=== PATIENT | female | born 1945 | race Caucasian/White ===

== ENCOUNTER → 2016-07-25 | Outpatient (CLI) | payer OTHER, MEDICARE ==
--- NOTE | 2016-07-25 11:25 | CT ---
CT Scan of the Paranasal Sinuses Clinical History: 71-year-old female with suspected chronic sinusitis. ICD 10 Diagnostic Code: G32.9. Technique: A multidetector unenhanced helical CT scan was obtained from the level of the frontal sinu ses inferiorly through the maxillary alveolar ridge, with images reformatted at 2.00 mm increments an d reviewed in bone and soft tissue windows. Parasagittal and paracoronal reconstructed images are als o reviewed on the workstation. The DFOV is 17.2 cm. A dose reduction protocol was used. Comparison Study: CT scan of the facial bones, dated January 13, 2016. Findings: Since the previous study, there has been resolution of tiny air-fluid levels associated wit h the posterior portions of the maxillary sinuses. The maxillary, ethmoid, frontal, and sphenoid sinu ses are now patent. There is no mucosal thickening, polyp, retention cyst, or osseous erosion. There is mild rightward nasal septal deviation. The ostiomeatal complexes are patent, although mildly narro wed on the right side. There is a mild degree of nasal turbinate congestion with some dependent mucus in the inferior nasal cavities. The orbital rims are intact. The osseous calvarium is within normal limits. There is some mural atherosclerotic calcification of the cavernous carotid arteries. The temp oromandibular joints are anatomically aligned. The mastoids are patent. The visualized supra- and inf ratentorial structures are age-appropriate with a mild degree of cortical atrophy. Impression: There is no evidence of sinusitis.
== END ==
LOC: FIMAGING 09:18
PROVIDERS: ATTEND Internal Medicine Infectious Disease
DX: R09.81 Nasal congestion (principal); J34.2 Deviated nasal septum
CPT/HCPCS: 82784-90; 83516-90; 83520-90

== ENCOUNTER → 2016-11-28 | Outpatient (CLI) | payer OTHER, MEDICARE | LOC: FIMAGING 09:08 | DX: M43.12 Spondylolisthesis, cervical region (principal); M48.02 Spinal stenosis, cervical region; M50.31 Other cervical disc degeneration, high cervical region; M50.321 Other cervical disc degeneration at C4-C5 level; M50.322 Other cervical disc degeneration at C5-C6 level; M50.323 Other cervical disc degeneration at C6-C7 level; M50.33 Other cervical disc degeneration, cervicothoracic region; M51.34 Other intervertebral disc degeneration, thoracic region; M12.88 Other specific arthropathies, not elsewhere classified, other specified site; M99.71 Connective tissue and disc stenosis of intervertebral foramina of cervical region ==

== ENCOUNTER → 2017-01-27 | Outpatient (CLI) | payer OTHER, MEDICARE | DX: R13.13 Dysphagia, pharyngeal phase (principal); Z98.1 Arthrodesis status | CPT/HCPCS: 92611-GN ==

== ENCOUNTER 2017-06-22 11:58 | Emergency (ER) | payer OTHER, MEDICARE ==
[2017-06-22 12:07] VITALS: TEMP 98.1
--- NOTE | 2017-06-22 12:13 | EDPHY ---
HPI/HX/ROS/PE/MDM Narrative: CHIEF COMPLAINT: Headache HPI: This patient is a 72 year old female with history of hypertension who underwent c-spine surgery in November complaining of headache and recent blood pressure changes. 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 Her spine surgeon, Dr. Abelardo Palomo in [place], referred her to a local pain control clinic under the care of Dr. Etienne Mercedes at [facility]. Dr. Mercedes performed a lidocaine injection about 1.5 weeks ago. Following this, she has had horrible headaches and dizziness. At a follow up visit , four days ago, the patient was noted to be hypertensive at that visit at 172/110. She was referred to urgent care, but did not present at that time because she needed to go to the airport. She felt better Thursday and relaxed over the weekend. Today, she developed severe pounding head pain and her dizziness returned. She has pain behind her eyes and radiating up from neck. She states her blood pressure is normal today. She generally takes Carvedilol, Losartan, and Furosemide, and denies any recent changes or missed doses. She denies chest pain , shortness of breath, nausea, vomiting, or other associated symptoms. REVIEW OF SYSTEMS: Aside from elements discussed in the HPI, a comprehensive 10-point review of systems was reviewed and is negative. PMH: 1. Hypertension (Carvedilol, Losartan, Furosemide) 2. Asthma 3. Psoriasis 4. History of skin cancer 5. Cervical spine surgery 6. Cholecystectomy 7. Hernia repair SOCIAL HISTORY: Lives in [place]. Retired. PCP Dr. Son. PHYSICAL EXAM: General:Patient is alert, in no acute distress. ENT:Eyes are normal to inspection. ENT inspection normal. Neck: Diffuse tenderness. Normal inspection. Full range of motion. Respiratory:No respiratory distress. Breath sounds normal bilaterally. Cardiovascular: Regular rate and rhythm. Strong peripheral pulses. Normal cap refill. Abdomen:The abdomen is nontender to palpation. There are no peritoneal signs. There are normal bowel sounds. Back: Normal to inspection. No tenderness to palpation. Skin: Normal color. No rash. Warm and dry. Extremities: Normal appearance. Full range of motion. Neuro: Oriented x3. Normal motor function. Normal sensory function. No pronator drift. Normal [id number]. ED Course: This patient is a 72 y/o female s/p cervical spine surgery in November, six months ago, complaining of persistent head and neck pain. Exam reveals diffuse tenderness to the neck. She is neurologically intact. Plan for labs including CBC BMP, Troponin. Plan to administer 0.5mg IV Dilaudid for pain relief. Offered CT imaging for further evaluation as the patient states adamantly that she cannot have MRI due to hardware in her neck. She denies having CT imaging since onset of pain. Plan for CT head and CTA head and neck. 14:[address] Marley, radiologist. CT studies negative for acute processes. 14:30 Reassessed patient. Discussed imaging results. Plan to discharge home in good condition. She will follow up with her pain specialist and spine surgeon within 72 hours for further evaluation. She understands to follow up with her PCP as well regarding her blood pressure concerns. Return precautions discussed. She is comfortable with this plan. MDM: This patient presents with a combination of chronic severe neck and head pain, as well as recent elevated BP readings. She was apparently found to have an elevated BP at her pain management appointment last week, but this was also recorded when patient admits she was in severe pain, so it is unclear if this is significant. Her BP is mildly elevated here in the ED but certainly not dangerously so, and she is already on HTN meds. Workup in the ED negative for signs of end-organ damage. Given patient's complaint of head and neck pain associated with dizziness, CTA was performed as well to ensure no signs of vessel dissection or occlusion, and this is thankfull normal. Patient insists that she is not able to undergo an MRI because of neck hardware - I am not sure if this is actually true but patient refuses to consider MRI at this time. We will discharge patient with instructions to follow-up with PCP closely regarding her BP management. - Data Points Imaging Results: Imaging Impressions Head CTA 06/22/17 12:39 Impression: 1. Markedly limited due to metallic artifact from the anterior and posterior fusion hardware. 2. Mild atherosclerotic disease bilateral carotid bulbs without flow-limiting stenosis or occlusion. 3. No evidence of occlusion of the bilateral carotid or vertebral arteries. 4. No definite carotid or vertebral dissection, although markedly limited due to patient metallic artifact, especially for evaluation of bilateral vertebral arteries. Measurement of carotid stenosis is based on the residual internal carotid diameter with [place] Symptomatic Carotid Endarterectomy Trial (NASCET) based stenosis levels. CT Angiogram of the Brain Clinical Indications: Severe headache, dizziness, recent neck procedure. Technique: CT angiogram of the brain and neck was performed with the uneventful intravenous administration of 85 mL Isovue-370 contrast. Multiplanar reconstructions including 3D reconstructions performed and evaluated on [employer] workstation in order to better evaluate the [place] vessels. Images were manipulated by the radiologist at the computer workstation. Dose reduction techniques were utilized. Findings: Major vessels of the [place] are adequately displayed, demonstrating no evidence of aneurysm, vascular malformation, flow-limiting stenosis, or occlusion. Bilateral cavernous internal carotid arteries and vertebrobasilar system demonstrates no evidence of flow-limiting stenosis, aneurysm, occlusion, or dissection. Superior sagittal sinus, transverse sinuses , and major veins demonstrate no evidence of intraluminal thrombi. Mild cerebrovascular atherosclerotic calcifications bilateral cavernous internal carotid arteries. Impression: 1. Cerebrovascular atherosclerosis. 2. No evidence of complete occlusion of the [place] vessels or superior sagittal sinus. 3. No definite cerebral aneurysm. Findings and recommendations discussed with emergency department physician, Zia Braden MD at 1410 hours, June 22, 2017. Final report concurs with initial preliminary interpretation. Head CT 06/22/17 12:40 Impression: 1. Mild atrophy. 2. No acute hemorrhage, hydrocephalus, or mass effect. 3. Cerebrovascular atherosclerosis. 4. No definite acute infarct. 5. No sinusitis. Findings and recommendations discussed with emergency department physician, Zia Braden MD at 1409 hours, June 22, 2017. Final report concurs with initial preliminary interpretation. Neck CTA 06/22/17 12:40 Impression: 1. Markedly limited due to metallic artifact from the anterior and posterior fusion hardware. 2. Mild atherosclerotic disease bilateral carotid bulbs without flow-limiting stenosis or occlusion. 3. No evidence of occlusion of the bilateral carotid or vertebral arteries. 4. No definite carotid or vertebral dissection, although markedly limited due to patient metallic artifact, especially for evaluation of bilateral vertebral arteries. Measurement of carotid stenosis is based on the residual internal carotid diameter with [place] Symptomatic Carotid Endarterectomy Trial (NASCET) based stenosis levels. CT Angiogram of the Brain Clinical Indications: Severe headache, dizziness, recent neck procedure. Technique: CT angiogram of the brain and neck was performed with the uneventful intravenous administration of 85 mL Isovue-370 contrast. Multiplanar reconstructions including 3D reconstructions performed and evaluated on [employer] workstation in order to better evaluate the [place] vessels. Images were manipulated by the radiologist at the computer workstation. Dose reduction techniques were utilized. Findings: Major vessels of the [place] are adequately displayed, demonstrating no evidence of aneurysm, vascular malformation, flow-limiting stenosis, or occlusion. Bilateral cavernous internal carotid arteries and vertebrobasilar system demonstrates no evidence of flow-limiting stenosis, aneurysm, occlusion, or dissection. Superior sagittal sinus, transverse sinuses , and major veins demonstrate no evidence of intraluminal thrombi. Mild cerebrovascular atherosclerotic calcifications bilateral cavernous internal carotid arteries. Impression: 1. Cerebrovascular atherosclerosis. 2. No evidence of complete occlusion of the [place] vessels or superior sagittal sinus. 3. No definite cerebral aneurysm. Findings and recommendations discussed with emergency department physician, Zia Braden MD at 1410 hours, June 22, 2017. Final report concurs with initial preliminary interpretation. Imaging: Discussed imaging studies w/ endocrinology physician Radiologist Laboratory Results: Laboratory Results 06/22/17 12:50 06/22/17 12:50 06/22/17 06/22/17 06/22/17 12:56 12:50 12:50 WBC 7.71 10^3/uL 10^3/uL (3.80-9.50) RBC 4.29 10^6/uL 10^6/uL (4.18-5.33) Hgb 13.0 g/dL g/dL (12.6-16.3) POC Hgb 12.9 gm/dL gm/dL (12.6-16.3) Hct 38.9 % % (38.0-47.0) POC Hct 38 % % (38-47) MCV 90.7 fL fL (81.5-99.8) MCH 30.3 pg pg (27.9-34.1) MCHC 33.4 g/dL g/dL (32.4-36.7) RDW 12.2 % % (11.5-15.2) Plt Count 194 10^3/uL 10^3/uL (150-400) MPV 10.3 fL fL (8.7-11.7) Neut % (Auto) 76.0 % H % (39.3-74.2) Lymph % (Auto) 15.4 % % (15.0-45.0) Garrard % (Auto) 5.8 % % (4.5-13.0) Eos % (Auto) 2.2 % % (0.6-7.6) Baso % (Auto) 0.3 % % (0.3-1.7) Nucleat RBC Rel Count 0.0 % % (0.0-0.2) Absolute Neuts (auto) 5.86 10^3/uL 10^3/uL (1.70-6.50) Absolute Lymphs (auto) 1.19 10^3/uL 10^3/uL (1.00-3.00) Absolute Monos (auto) 0.45 10^3/uL 10^3/uL (0.30-0.80) Absolute Eos (auto) 0.17 10^3/uL 10^3/uL (0.03-0.40) Absolute Basos (auto) 0.02 10^3/uL 10^3/uL (0.02-0.10) Absolute Nucleated RBC 0.00 10^3/uL 10^3/uL (0-0.01) Immature Gran % 0.3 % % (0.0-1.1) Immature Gran # 0.02 10^3/uL 10^3/uL (0.00-0.10) POC Sodium 140 mEq/L mEq/L (134-144) Sodium 142 mEq/L mEq/L (134-144) POC Potassium 3.9 mEq/L mEq/L (3.3-5.0) Potassium 4.2 mEq/L mEq/L (3.5-5.2) POC Chloride 103 mEq/L mEq/L (97-110) Chloride 103 mEq/L mEq/L (97-110) Carbon Dioxide 24 mEq/l mEq/l (22-31) Anion Gap 15 mEq/L mEq/L (8-16) POC BUN 33 mg/dL H mg/dL (7-23) BUN 33 mg/dL H mg/dL (7-23) Creatinine 1.2 mg/dL H mg/dL (0.6-1.0) POC Creatinine 1.3 mg/dL H mg/dL (0.6-1.0) Estimated GFR 44 Glucose 108 mg/dL H mg/dL (70-100) POC Glucose 114 mg/dL H mg/dL (70-100) Calcium 10.1 mg/dL mg/dL (8.5-10.4) Troponin I < 0.012 ng/mL ng/mL (0.000-0.034) Medications Given: Hydromorphone HCl (Dilaudid) 0.5 mg IVP Q2HRS PRN PRN Reason: Pain, Severe Unable to Take PO Last Admin: 06/22/17 12:53 Dose: 0.5 mg Point of Care Test Results: 06/22/17 12:56 POC Sodium 140 POC Potassium 3.9 POC Chloride 103 POC BUN 33 H POC Creatinine 1.3 H POC Glucose 114 H General Time Seen by Provider: 06/22/17 12:10 Initial Vital Signs: Initial Vital Signs Temperature (C) 36.7 C 06/22/17 12:03 Heart Rate 68 06/22/17 12:03 Respiratory Rate 17 06/22/17 12:03 Blood Pressure 126/81 H 06/22/17 12:03 O2 Sat (%) 96 06/22/17 12:03 O2 Delivery Mode Room Air O2 (L/minute) 2 Allergies/Adverse Reactions: Sulfa (Sulfonamide Antibiotics) Allergy (Severe, Verified 06/22/17 12:00) Anaphylaxis Home Medications: Medication Instructions Recorded Aspirin 81mg (OTC) 04/04/15 Carvedilol 04/04/15 Furosemide 04/04/15 Losartan Potassium 04/04/15 Metformin HCl 04/04/15 Etanercept [Enbrel] 01/14/16 Oxycodone HCl 06/22/17 Sertraline HCl 06/22/17 Departure - Departure Disposition: Home, Routine, Self-Care Clinical Impression: Neck pain, Headache Condition: Good Instructions: Acute Headache (ED), Neck Pain (ED) Additional Instructions: Follow-up with your PCP within one week for blood pressure management. Follow- up with your spine and pain specialists regarding your neck pain and headache within 72 hours. Return to the ED for fever, severe pain, numbness, weakness or other concerns. Referrals: Gillian Son MD [Primary Care Provider] - As per Instructions Report Scribed for: Zia Braden Report Scribed by: Radha Aguirre Date of Report: 06/22/17 Time of Report: 14:30 Physician Review and Approval Statement: Portions of this note were transcribed by an ED scribe. I personally performed the history, physical exam, and medical decision making; and confirm the accuracy of the information in the transcribed note.
[2017-06-22] MEDS ORDERED: HYDROmorphONE/DILAUDID 1 MG/ML INJ IVP PRN (12:39)
[2017-06-22 13:07] LABS: PLATELET COUNT 194 10^3/uL (150-400)
[2017-06-22] MEDS ORDERED: IOPAMIDOL (ISOVUE 370) 100 ML BTL IV ONE (13:15)
[2017-06-22 13:16] VITALS: BP 148/76; RESP 18
[2017-06-22 14:44] VITALS: PULSE 80; O2SAT 96
== END 2017-06-22 14:44 | disposition home or self-care (01) ==
DX: R51 Headache (principal); M54.2 Cervicalgia; I10 Essential (primary) hypertension; J45.909 Unspecified asthma, uncomplicated; Z79.82 Long term (current) use of aspirin; Z85.828 Personal history of other malignant neoplasm of skin; Z90.49 Acquired absence of other specified parts of digestive tract
CPT/HCPCS: 70450; 70496; 70498; 96374; 99285; J1170; Q9967; 82947-QW

== ENCOUNTER → 2017-11-05 | Outpatient (CLI) | payer OTHER, MEDICARE | DX: R13.10 Dysphagia, unspecified (principal); Z98.1 Arthrodesis status | CPT/HCPCS: 74230; 92611; G8996; G8997; G8998 ==

== ENCOUNTER 2018-08-13 09:31 | Inpatient (IN) | payer OTHER, MEDICARE ==
[2018-08-13] MEDS ORDERED: LR 1,000 ML IV ONE (09:55)
[2018-08-13] MEDS ORDERED: ceFAZolin 2 GM/DEXTROSE 100 ML IV ONE (09:55)
--- NOTE | 2018-08-13 10:42 | PDHPUP ---
History & Physical Update H&P update statement: This history and physical update is based on an assessment of the patient which was completed after admission or registration (within 24 hours), but prior to the surgery/procedure. H&P update: H&P reviewed & patient examined, no change in patient's condition since H&P completed
[2018-08-13] MEDS ORDERED: MIDAZOLAM 2 MG/2 ML VIAL IVP ONE (11:49)
--- NOTE | 2018-08-13 11:49 | PDANEPAE ---
ANE History of Present Illness left lower leg debridement ANE Past Medical History - Cardiovascular History Hx Hypertension: Yes Hx Arrhythmias: No Hx Chest Pain: No Hx Coronary Artery / Peripheral Vascular Disease: No Hx CHF / Valvular Disease: No Hx Palpitations: No Cardiovascular History Comment: PCP MONITORS BP MEDICATIONS CURRENTLY. WAS PREVIOUSLY SEEN BY [facility] - Pulmonary History Hx COPD: No Hx Asthma/Reactive Airway Disease: No Hx Recent Upper Respiratory Infection: No Hx Oxygen in Use at Home: No Hx Sleep Apnea: No Sleep Apnea Screening Result - Last Documented: Negative Pulmonary History Comment: EXCESSIVE MUCOUS PRODUCTION D/T MOLD POISIONING - Neurologic History Hx Cerebrovascular Accident: No Hx Seizures: No Hx Dementia: No Neurologic History Comment: UNABLE TO MOVE NECK FULL ROM D/T HARDWARE AND PREVIOUS SURGERIES - Endocrine History Hx Diabetes: No Hypothyroid: No Hyperthyroid: No Obesity: no Endocrine History Comment: HYPERPARATHYROIDISM FOLLOWED BY DR PALMA - Renal History Hx Renal Disorders: No - Liver History Hx Hepatic Disorders: No - Neurological & Psychiatric Hx Hx Neurological and Psychiatric Disorders: Yes Neurological / Psychiatric History Comment: DEPRESSION D/T DIFFICULT LAST FEW YEARS - Cancer History Hx Cancer: Yes 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 WEARS GLASSES. NEEDS HEARING AIDES. RADIATION JOSE TO BLE'S - Chronic Pain History Chronic Pain: Yes (BLE'S) - Surgical History Prior Surgeries: RIGHT TKA 2000. LAP ADHESIOLYSIS AND UMBILICAL HERNIORRAPHY WITH MELLO 07/20/12. LAP REPAIR ING HERNIA WITH MELLO 11/16/12. ANT & POST FUSION 11/2016. REVISION OF FUSION AT C1 07/23/17 S/P FALL ANE Review of Systems Review of systems is: negative Review of Systems: - Exercise capacity METS (RN): 4 METS ANE Patient History - Allergies Allergies/Adverse Reactions: Sulfa (Sulfonamide Antibiotics) Allergy (Verified 08/10/18 11:48) Anaphylaxis - Home Medications Home medications: home medication list seen and reviewed Home Medications: Carvedilol [Coreg (*)] 25 mg PO BIDMEAL 04/04/15 [Last Taken 08/13/18] Furosemide [Lasix 40 MG (*)] 40 mg PO DAILY 04/04/15 [Last Taken 08/13/18] Losartan Potassium [Cozaar 50 mg (*)] 50 mg PO BID 04/04/15 [Last Taken 08/13/18 ] Sertraline HCl [Zoloft 100mg (*)] 100 mg PO DAILY 06/22/17 [Last Taken 08/13/18] Acetaminophen [Tylenol 325mg (*)] 325 mg PO Q6HRS PRN 08/04/18 [Last Taken 08/13] Aspirin [Aspirin 81mg (*)] 81 mg PO HS 08/04/18 [Last Taken 08/13/18] Cholecalciferol Vit D3 [Vitamin D3 (*)] 5,000 units PO DAILY 08/04/18 [Last Taken 08/13/18] amLODIPine BESYLATE [Norvasc 2.5 mg (*)] 2.5 mg PO DAILY 08/04/18 [Last Taken ] Etanercept [Enbrel] 08/13/18 [Last Taken 08/13/18] Metformin HCl [Fortamet] 08/13/18 [Last Taken 08/13/18] - NPO status NPO Since - Liquids (Date): 08/13/18 NPO Since - Liquids (Time): 08:00 NPO Since - Solids (Date): 08/12/18 NPO Since - Solids (Time): 20:00 - Anes Hx Anes Hx: no prior problems - Smoking Hx Smoking Status: Never smoked - Family Anes Hx Family Hx Anesthesia Complications: NONE ANE Labs/Vital Signs - Vital Signs Blood Pressure: 116/75 Heart Rate: 63 Respiratory Rate: 16 O2 Sat (%): 92 Height: 162.56 cm Weight: 84.368 kg ANE Physical Exam - Airway Neck exam: FROM Mallampati Score: Class 2 Mouth exam: normal dental/mouth exam - Pulmonary Pulmonary: no respiratory distress - Cardiovascular Cardiovascular: regular rate and rhythym - ASA Status ASA Status: III ANE Anesthesia Plan Anesthesia Plan: GA w LMA
[2018-08-13] MEDS ORDERED: fentaNYL 100 MCG/2 ML INJ ONE ×2 (11:53→13:02)
[2018-08-13] MEDS ORDERED: PROPOFOL 200 MG/20 ML VIAL ONE (11:54)
[2018-08-13] MEDS ORDERED: LIDOCAINE 2% 5 ML SDV ONE (11:55)
[2018-08-13] MEDS ORDERED: BUPIVACAINE 0.5% 30 ML SDV ONE (11:58)
[2018-08-13] MEDS ORDERED: ePHEDrine SULFATE 25 MG/5 ML SYR ONE (12:18)
[2018-08-13] MEDS ORDERED: KETOROLAC 30 MG/1 ML SDV ONE (12:21)
[2018-08-13] MEDS ORDERED: ONDANSETRON 4 MG/2 ML VIAL ONE (12:21)
[2018-08-13] MEDS ORDERED: DEXAMETHASONE 4 MG/ML VIAL ONE (12:21)
[2018-08-13] MEDS ORDERED: NALOXONE HCL 0.4 MG/ML INJ IVP PRN (12:26)
[2018-08-13] MEDS ORDERED: ALBUTEROL 3 ML DEYVIAL IH PRN (12:26)
[2018-08-13] MEDS ORDERED: ACETAMINOPHEN 500 MG TAB PO PRN (12:26)
[2018-08-13] MEDS ORDERED: PROMETHAZINE HCL 25 MG/ML INJ IVP PRN ×2 (12:26→12:41)
[2018-08-13] MEDS ORDERED: ONDANSETRON 4 MG/2 ML VIAL IVP PRN ×2 (12:26→12:41)
[2018-08-13] MEDS ORDERED: METOCLOPRAMIDE 10 MG/2 ML VIAL IVP PRN (12:26)
[2018-08-13] MEDS ORDERED: HYDROCODONE/APAP 5/325 TAB PO PRN (12:26)
[2018-08-13] MEDS ORDERED: LR 500 ML IV PRN (12:26)
[2018-08-13] MEDS ORDERED: oxyCODONE IR 5 MG TAB PO PRN (12:26)
--- NOTE | 2018-08-13 12:26 | POSTANESTH ---
Post Anesthetic Evaluation Cardiovascular Status: Normal, Stable Respiratory Status: Normal, Stable Level of Consciousness/Mental Status: Can Participate in Eval, Mildly Sleepy, Arousable Pain Control: Adequate, Prn Tx Ordered Nausea/Vomiting Control: Adequate, Prn Tx Ordered Complications Possibly Related to Anesthesia: None Noted
--- NOTE | 2018-08-13 12:40 | POSTOPPROG ---
Post Op Note Date of Operation: 08/13/18 Surgeon: Diane Valencia Anesthesiologist: hua Anesthesia: GET(General Endotracheal) Pre-op Diagnosis: squamous cell cancer RLE Post-op Diagnosis: same Indication: 73 yo w non healing wound s/p radiation for SCC Procedure: Debride skin soft tissue and fascia 6.4x3.2 Findings: devitalized tisssue Inf/Abcess present in the surg proc area at time of surgery?: Yes Depth: Superfical (Skin SQ) EBL: Minimal Drains: Wound Vac Specimen(s): none
[2018-08-13] MEDS ORDERED: ACETAMINOPHEN 325 MG TAB PO PRN (12:41)
[2018-08-13] MEDS: fentaNYL 100 MCG/2 ML INJ IVP PRN ×2 (13:04→13:14)
[2018-08-13] MEDS ORDERED: HYDROmorphONE/DILAUDID 2 MG/ML INJ ONE (13:18)
[2018-08-13] MEDS: HYDROmorphONE/DILAUDID 2 MG/ML INJ IVP PRN ×4 (13:27→14:14)
[2018-08-13] MEDS: CARVEDILOL 25 MG TAB PO SCH (17:46)
[2018-08-13] MEDS: KETOROLAC 15 MG/1 ML SDV IVP PRN (18:59)
[2018-08-13] MEDS: ASPIRIN 81 MG CHEWABLE TAB PO SCH (19:59)
[2018-08-13] MEDS: HYDROCODONE/APAP 5/325 TAB PO PRN (19:59)
[2018-08-13] MEDS: LOSARTAN POTASSIUM 50 MG TAB PO SCH (19:59)
[2018-08-14] MEDS: HYDROCODONE/APAP 5/325 TAB PO PRN ×3 (00:10→20:41)
[2018-08-14] MEDS: KETOROLAC 15 MG/1 ML SDV IVP PRN ×2 (02:00→08:26)
[2018-08-14] MEDS: CARVEDILOL 25 MG TAB PO SCH ×2 (08:27→17:48)
[2018-08-14] MEDS: SERTRALINE HCL 100 MG TAB PO SCH (08:27)
[2018-08-14] MEDS: LOSARTAN POTASSIUM 50 MG TAB PO SCH ×2 (08:27→20:42)
[2018-08-14] MEDS: FUROSEMIDE 40 MG TAB PO SCH (08:27)
[2018-08-14] MEDS: traMADol 50 MG TAB PO PRN (08:27)
[2018-08-14] MEDS ORDERED: oxyCODONE IR 5 MG TAB PO PRN (08:31)
[2018-08-14] MEDS ORDERED: ROPIVACAINE HCL 150 MG/30 ML INJ ONE (08:47)
[2018-08-14] MEDS ORDERED: ROPIVACAINE 0.2% 550 MG in WATER FOR INJECTION,STERILE 275 ML, PUMP SET 1 EA NB SCH (09:30)
--- NOTE | 2018-08-14 11:05 | PDANEPAE ---
ANE History of Present Illness pain on floor not well controlled, asked to eval for regional anesthesia by Dr. Erik VOSS Past Medical History - Cardiovascular History Hx Hypertension: Yes Hx Arrhythmias: No Hx Chest Pain: No Hx Coronary Artery / Peripheral Vascular Disease: No Hx CHF / Valvular Disease: No Hx Palpitations: No Cardiovascular History Comment: PCP MONITORS BP MEDICATIONS CURRENTLY. WAS PREVIOUSLY SEEN BY [facility] - Pulmonary History Hx COPD: No Hx Asthma/Reactive Airway Disease: No Hx Recent Upper Respiratory Infection: No Hx Oxygen in Use at Home: No Hx Sleep Apnea: No Sleep Apnea Screening Result - Last Documented: Negative Pulmonary History Comment: EXCESSIVE MUCOUS PRODUCTION D/T MOLD POISIONING - Neurologic History Hx Cerebrovascular Accident: No Hx Seizures: No Hx Dementia: No Neurologic History Comment: UNABLE TO MOVE NECK FULL ROM D/T HARDWARE AND PREVIOUS SURGERIES - Endocrine History Hx Diabetes: No Hypothyroid: No Hyperthyroid: No Obesity: no Endocrine History Comment: HYPERPARATHYROIDISM FOLLOWED BY DR PALMA - Renal History Hx Renal Disorders: No - Liver History Hx Hepatic Disorders: No - Neurological & Psychiatric Hx Hx Neurological and Psychiatric Disorders: Yes Neurological / Psychiatric History Comment: DEPRESSION D/T DIFFICULT LAST FEW YEARS - Cancer History Hx Cancer: Yes 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 WEARS GLASSES. NEEDS HEARING AIDES. RADIATION JOSE TO BLE'S - Chronic Pain History Chronic Pain: Yes (BLE'S) - Surgical History Prior Surgeries: RIGHT TKA 2000. LAP ADHESIOLYSIS AND UMBILICAL HERNIORRAPHY WITH MELLO 07/20/12. LAP REPAIR ING HERNIA WITH MELLO 11/16/12. ANT & POST FUSION 11/2016. REVISION OF FUSION AT C1 07/23/17 S/P FALL ANE Review of Systems Review of Systems: - Exercise capacity METS (RN): 4 METS ANE Patient History - Allergies Allergies/Adverse Reactions: Sulfa (Sulfonamide Antibiotics) Allergy (Verified 08/10/18 11:48) Anaphylaxis - Home Medications Home Medications: Carvedilol [Coreg (*)] 25 mg PO BIDMEAL 04/04/15 [Last Taken 08/12/18] Furosemide [Lasix 40 MG (*)] 40 mg PO DAILY 04/04/15 [Last Taken 08/13/18] Losartan Potassium [Cozaar 50 mg (*)] 50 mg PO BID 04/04/15 [Last Taken 08/13/18 ] Sertraline HCl [Zoloft 100mg (*)] 100 mg PO DAILY 06/22/17 [Last Taken 08/13/18] Aspirin [Aspirin 81mg (*)] 81 mg PO HS 08/04/18 [Last Taken 08/06/18] Cholecalciferol Vit D3 [Vitamin D3 (*)] 5,000 units PO DAILY 08/04/18 [Last Taken 08/13/18] amLODIPine BESYLATE [Norvasc 2.5 mg (*)] 2.5 mg PO DAILY 08/04/18 [Last Taken ] Acetaminophen [Tylenol ES 500 mg (*)] 1,000 mg PO Q6 PRN 08/13/18 [Last Taken ] Etanercept [Enbrel] 50 mg SQ Q3D 08/13/18 [Last Taken 08/06/18] Metformin HCl [Fortamet] 500 mg PO HS 08/13/18 [Last Taken 08/09/18] Triamcinolone 0.1% Ointment 1 lucia TD BID 08/13/18 [Last Taken 08/13/18] oxyCODONE IR [Oxycodone Ir (*)] 5 mg PO HS PRN 08/13/18 [Last Taken 08/12/18] - NPO status NPO Since - Liquids (Date): 08/13/18 NPO Since - Liquids (Time): 08:00 NPO Since - Solids (Date): 08/12/18 NPO Since - Solids (Time): 20:00 - Smoking Hx Smoking Status: Never smoked - Family Anes Hx Family Hx Anesthesia Complications: NONE ANE Labs/Vital Signs - Vital Signs Blood Pressure: 108/56 Heart Rate: 62 Respiratory Rate: 14 O2 Sat (%): 98 Height: 162.56 cm Weight: 84.368 kg ANE Physical Exam - Airway Neck exam: decreased ROM Mallampati Score: Class 3 Mouth exam: normal dental/mouth exam, poor dentition - Pulmonary Pulmonary: no respiratory distress, no rales or rhonchi - Cardiovascular Cardiovascular: regular rate and rhythym, no murmur, rub, or gallop - ASA Status ASA Status: III ANE Anesthesia Plan Regional Anesthesia: single shot NB, continuous NB
--- NOTE | 2018-08-14 11:06 | POSTANESTH ---
Post Anesthetic Evaluation Cardiovascular Status: Normal, Stable Respiratory Status: Normal, Stable Level of Consciousness/Mental Status: Can Participate in Eval, Alert and Oriented Pain Control: Adequate, Prn Tx Ordered Nausea/Vomiting Control: Adequate, Prn Tx Ordered Complications Possibly Related to Anesthesia: None Noted
--- NOTE | 2018-08-14 11:31 | GOP ---
[f rep st] OPERATIVE REPORT DATE OF OPERATION: 08/13/2018 SURGEON: Diane Valencia MD ANESTHESIA: General. ANESTHESIOLOGIST: Sharan Arreguin MD PREOPERATIVE DIAGNOSIS: 1. Chronic wound. 2. History of squamous cell carcinoma, right lower extremity. POSTOPERATIVE DIAGNOSIS: 1. Chronic wound. 2. History of squamous cell carcinoma, right lower extremity. PROCEDURE PERFORMED: Debridement of skin, soft tissue to level of fascia, measuring 6.4 x 3.2 x 0.4 cm. FINDINGS: Devitalized tissue. SPECIMENS: None. ESTIMATED BLOOD LOSS: Minimal. INDICATIONS: The patient is a 73-year-old woman who has a history of skin cancer of her left lower e xtremity, which was removed, and she subsequently developed a large infection. She was fearful of santos ving Mohs or operative excision of a squamous cell of her right lower extremity and underwent radiati on therapy. She developed a chronic wound in this area. [facility], and it is extremely painful to debride. The patient is having difficulty sleeping due to the pain. Debridement under general anesthesia was indicated. DESCRIPTION OF PROCEDURE: The patient was brought into the operating room and placed supine on the t able, and general anesthesia was administered. Her right lower extremity was prepped and draped in t usual sterile fashion. I infiltrated the area with 0.5% Marcaine prior to debridement. I then used a Misonix to debride the wound to the level of the fascia. The wound measured 6.4 x 3.2 x 0.4 cm. All devitalized tissue was removed. I then placed a VeraFlo wound V.A.C. She was awakened in the operating room, extubated, transferred to PACU in stable condition. /[id number]/MODL
--- NOTE | 2018-08-14 12:01 | SOAPPROG ---
SOAP Progress Note Assessment/Plan: Assessment/Plan: 73 year old woman s/p RLE wound debridement 08/13/2018. Hx of RT for SCC RLE,subsequent chronic wound had been treated in [facility]. Pain not well controlled-oral pain meds not working Anesthesia consulted-nerve block, either single injection or catheter today Start Lyrica (patient dizzy on Neurontin) Restart Flexeril for neck pain CAM walking boot for ambulating if foot numb from block continue wound vac Melatonin for sleep tonight S: not sleeping, very painful. O: Alert, sitting at bedside HR regular lungs CTA, no increased WOB RLE-elevated with wound vac producing serosanguinous fluid, 1+ LE edema Plan: 08/14/18 12:02 08/14/18 13:44 Objective: Vital Signs Temp Pulse Resp BP Pulse Ox 36.7 C 64 16 114/64 98 08/14/18 11:34 08/14/18 11:34 08/14/18 11:34 08/14/18 11:34 08/14/18 11:34 08/13/18 08/14/18 08/15/18 05:59 05:59 05:59 Intake Total 2049 Output Total 305 Balance 1745 ICD10 Worksheet Patient Problems: Problems Problem Status Onset Squamous cell carcinoma of skin of lower extremity Acute - ICD10 Problem Qualifiers (1) Squamous cell carcinoma of skin of lower extremity Qualifiers: Laterality: right Qualified Code(s): C44.722 - Squamous cell carcinoma of skin of right lower limb, including hip
[2018-08-14] MEDS: TRIAMCINOLONE 0.1% TD SCH ×2 (12:49→20:50)
[2018-08-14] MEDS: PREGABALIN 25 MG CAP PO SCH ×2 (15:43→20:41)
[2018-08-14] MEDS: CYCLOBENZAPRINE 10 MG TAB PO SCH ×2 (15:43→20:41)
--- NOTE | 2018-08-14 15:45 | ASMTCMCOM ---
CM Note CM Note Notes: Pt admitted for scheduled wound debridement, with wound vac. Met with pt, PT recommends home care but pt doesn't think she'll need it. She may go home with wound vac but no definite plan as of yet. CM will f/u. She lives at home alone in an apartment, says she has supportive friends. DC Plan: TBD Date Signed: 08/14/2018 03:43 PM Electronically Signed By:Rosa Wilcox RN
--- NOTE | 2018-08-14 18:08 | PDMN ---
Medical Necessity Medical necessity: MCG PGPM Pain Management: 73 yo s/p debridement for chronic wound RLE 2nd to squamous cell carcinoma. Initially OBS surgery but pt requiring additional MN as pain not well controlled requiring anesthesia consult for potential nerve block - single injection vs. catheter Freq IV opioid admin q2-3 hours post op. Change to IP status 08/14/18@1724 per MD order.
[2018-08-14] MEDS: MELATONIN 3 MG TAB PO SCH (20:41)
[2018-08-14] MEDS: ASPIRIN 81 MG CHEWABLE TAB PO SCH (20:41)
[2018-08-14] MEDS: metFORMIN HCL 500 MG TAB PO SCH (20:41)
[2018-08-15] MEDS: HYDROCODONE/APAP 5/325 TAB PO PRN ×3 (06:23→21:43)
[2018-08-15] MEDS: PREGABALIN 25 MG CAP PO SCH ×3 (09:02→21:43)
[2018-08-15] MEDS: CARVEDILOL 25 MG TAB PO SCH ×2 (09:02→17:10)
[2018-08-15] MEDS: FUROSEMIDE 40 MG TAB PO SCH (09:03)
[2018-08-15] MEDS: CYCLOBENZAPRINE 10 MG TAB PO SCH ×3 (09:03→21:43)
[2018-08-15] MEDS: SERTRALINE HCL 100 MG TAB PO SCH (09:03)
[2018-08-15] MEDS: LOSARTAN POTASSIUM 50 MG TAB PO SCH ×2 (09:03→21:43)
[2018-08-15] MEDS: ENOXAPARIN 40 MG/0.4 ML SYR SC SCH (09:04)
[2018-08-15] MEDS: TRIAMCINOLONE 0.1% TD SCH ×2 (10:36→22:28)
--- NOTE | 2018-08-15 11:26 | SOAPPROG ---
SOAP Progress Note Assessment/Plan: Assessment/Plan: 73 year old woman s/p RLE wound debridement 08/13/2018. Hx of RT for SCC RLE,subsequent chronic wound had been treated in [facility]. Pain better controlled with ON-Q today CAM walking boot for ambulating if foot numb from block continue wound vac, change vac 2-3x per week S: Feeling better today, less painful. O: Alert, pleasant, NAD HR regular lungs CTA, no increased WOB RLE-elevated with wound vac producing serosanguinous fluid, 1+ LE edema Able to move toes right foot Plan: 08/14/18 12:02 08/14/18 13:44 08/15/18 11:23 08/15/18 12:41 Objective: Vital Signs Temp Pulse Resp BP Pulse Ox 36.5 C 58 L 18 116/62 98 08/15/18 08:00 08/15/18 09:02 08/15/18 08:00 08/15/18 09:03 08/15/18 08:00 08/14/18 08/15/18 08/16/18 05:59 05:59 05:59 Intake Total 2050 500 Output Total 305 600 500 Balance 1745 -100 -500 ICD10 Worksheet Patient Problems: Problems Problem Status Onset Squamous cell carcinoma of skin of lower extremity Acute - ICD10 Problem Qualifiers (1) Squamous cell carcinoma of skin of lower extremity Qualifiers: Laterality: right Qualified Code(s): C44.722 - Squamous cell carcinoma of skin of right lower limb, including hip
--- NOTE | 2018-08-15 16:59 | PDPAINCON ---
Pain Management Consultation Patient referred by : Erik - Subjective Pain at rest (/10): 8 Pain with activity (/10): 10 Pain is: under control Side effects include: No drowsy, No itchiness, No nausea, No rash Activity: out of bed with assistance - Objective Technique: continuous peripheral nerve block Site: sciatic Catheter site: clean, dry, intact, no erythema/edema/exudate Sensory and motor exam: consistent with block Vital signs: stable - Assessment/Plan Assessment/Plan: pain well-controlled, continue current mgmt, change infusion rate Additional comments: Pt seen and examined. Block site c/d/i, no e/e/e. ABle to ambulate with assistance. Reports appropriate sciatic nerve distribution of numbness. Has some saphenous discomfort. Plan: -increase rate to 10 cc/hr. - discussed removal of the nerve block catheter when OnQ involutes. -disposition of pt uncertain at this time, plan to continue block for total 3-4 days. -pt expressed understanding.
[2018-08-15] MEDS: KETOROLAC 15 MG/1 ML SDV IVP PRN ×2 (17:09→22:42)
[2018-08-15] MEDS: metFORMIN HCL 500 MG TAB PO SCH (21:43)
[2018-08-15] MEDS: MELATONIN 3 MG TAB PO SCH (21:43)
[2018-08-15] MEDS: ASPIRIN 81 MG CHEWABLE TAB PO SCH (21:43)
[2018-08-16] MEDS: HYDROCODONE/APAP 5/325 TAB PO PRN ×3 (02:59→21:02)
[2018-08-16] MEDS: KETOROLAC 15 MG/1 ML SDV IVP PRN ×2 (07:23→23:02)
[2018-08-16] MEDS: PREGABALIN 25 MG CAP PO SCH ×3 (07:28→21:02)
[2018-08-16] MEDS: FUROSEMIDE 40 MG TAB PO SCH (07:29)
[2018-08-16] MEDS: SERTRALINE HCL 100 MG TAB PO SCH (07:29)
[2018-08-16] MEDS: CYCLOBENZAPRINE 10 MG TAB PO SCH ×3 (07:29→21:02)
[2018-08-16] MEDS: LOSARTAN POTASSIUM 50 MG TAB PO SCH ×2 (07:31→21:02)
[2018-08-16] MEDS: CARVEDILOL 25 MG TAB PO SCH ×2 (07:31→18:22)
--- NOTE | 2018-08-16 08:48 | SOAPPROG ---
SOAP Progress Note Assessment/Plan: Assessment/Plan: 73 year old woman POD#3 s/p RLE wound debridement for chronic wound, h/o RT for SCC Pain controlled with ON-Q pain pump CAM walking boot for ambulating if foot numb from block Wound VAC change 3 times per week PT OT Dispo: Likely home tomorrow when pain pump removed and pain well controlled with oral pain medication. S: Definitely less painful today with pain pump in place. She is walking with Cam boot in place. She reports minimal numbness of her right lower extremity O: General: Pleasant, well-nourished and well-groomed woman in no acute distress HENT: Normocephalic, no gross hearing deficits, mucous membranes moist, pupils equal and round Respiratory: No increased work of breathing Cardiovascular: No peripheral edema Skin: Warm and dry. Right lower extremity wound VAC intact to suction without evidence of leak. No surrounding erythema. Psych: Mood and affect normal Neuro: Grossly intact. Full sensation of right lower extremity Objective: Vital Signs Temp Pulse Resp BP Pulse Ox 36.7 C 53 L 16 137/76 H 96 08/16/18 08:18 08/16/18 08:18 08/16/18 08:18 08/16/18 08:18 08/16/18 08:18 08/15/18 08/16/18 08/17/18 05:59 05:59 05:59 Intake Total 500 400 Output Total 600 1300 800 Balance -100 -900 -800 ICD10 Worksheet Patient Problems: Problems Problem Status Onset Squamous cell carcinoma of skin of lower extremity Acute
[2018-08-16] MEDS: ENOXAPARIN 40 MG/0.4 ML SYR SC SCH (09:23)
[2018-08-16] MEDS ORDERED: LIDOCAINE HCL 4% TOPICAL SOLN 50ML TP ONE (10:18)
[2018-08-16] MEDS: TRIAMCINOLONE 0.1% TD SCH ×2 (11:45→21:04)
--- NOTE | 2018-08-16 12:25 | WOCRNPDOC ---
WOCRN Advanced Assessment Note - Skin Integrity Problem, Advanced Assess Left Anterior Lower Leg Surgical Wound/Incision Dressing Type: Black Vac Foam (x2 huynh foam), Wound Vac Dressing Description: Clean/Dry, Intact Exudate Amount: None Integumentary Issue Intervention: Dressing Changed Natalie Wound Tissue: Erythema (to 3 cm circumferential natalie wound), Macerated (to 0.3 cm past all wound edges), Painful/Tender Wound Bed Constitution: Adhered Slough (100%) Wound Edges: Attached, Not Attached Site Measurement - Head-to-Toe Length X Width X Depth (cm): 6.5x3.8x0.4 Skin Integrity Problem Comment: Removed vac dressing after application of 4% liquid lidocaine to wound bed through the foam. Patient also recieved 2 mg IV morphine prior to vac changed. Despite quite a bit of stress about the pain to come, patient tolerated the proceedure well. Unfortunatley due the extensive amount of slough in the wound bed a vac dressing could not be replaced. Discussed plan of care with Desi MACIAS. Opted to place honey gauze dressing with a border foam cover until Saul Saldivar could round on the patient. Possible futher debridement is necessary. Kendall WOO in room for care. Wound care will follow. All patient questions answered.
--- NOTE | 2018-08-16 16:05 | ASMTCMCOM ---
CM Note CM Note Notes: Pts case discussed w/ COLLEEN Weeks. Pt may need a wound vac at time of d/c. CM sent signed prescription to [facility]. CM met w/ pt for dispo planning. Therapies are both recommending HC. She is agreeable to using [facility]. She has used [facility] in the past and had a great experience. [facility] is able to accept. CM to follow. Plan: [facility]; PT, OT, RN Date Signed: 08/16/2018 04:05 PM Electronically Signed By:EYAL Martinez
[2018-08-16] MEDS: MELATONIN 3 MG TAB PO SCH (21:02)
[2018-08-16] MEDS: metFORMIN HCL 500 MG TAB PO SCH (21:02)
[2018-08-16] MEDS: ASPIRIN 81 MG CHEWABLE TAB PO SCH (21:02)
[2018-08-17] MEDS: KETOROLAC 15 MG/1 ML SDV IVP PRN ×2 (07:43→13:45)
[2018-08-17] MEDS: PREGABALIN 25 MG CAP PO SCH ×3 (08:42→21:14)
[2018-08-17] MEDS: CARVEDILOL 25 MG TAB PO SCH ×2 (08:42→17:30)
[2018-08-17] MEDS: FUROSEMIDE 40 MG TAB PO SCH (08:43)
[2018-08-17] MEDS: CYCLOBENZAPRINE 10 MG TAB PO SCH ×3 (08:43→21:14)
[2018-08-17] MEDS: SERTRALINE HCL 100 MG TAB PO SCH (08:44)
[2018-08-17] MEDS: LOSARTAN POTASSIUM 50 MG TAB PO SCH ×2 (08:44→21:14)
[2018-08-17] MEDS: ENOXAPARIN 40 MG/0.4 ML SYR SC SCH (08:46)
[2018-08-17] MEDS: TRIAMCINOLONE 0.1% TD SCH ×2 (08:52→21:15)
[2018-08-17] MEDS ORDERED: LORazepam 2 MG/ML INJ IVP ONE (13:04)
[2018-08-17] MEDS ORDERED: LIDOCAINE HCL 4% TOPICAL SOLN 50ML TP ONE (13:09)
--- NOTE | 2018-08-17 14:59 | SOAPPROG ---
SOAP Progress Note Assessment/Plan: Assessment/Plan: 73 year old woman POD#4 s/p RLE wound debridement for chronic wound, h/o RT for SCC Pain controlled with ON-Q pain pump Wound vac reapplied PT OT Dispo: Likely home tomorrow with outpatient wound vac and home care. S: lots of anxiety around dressing change. overall better than dressing changes prior to surgery. O: General: Pleasant, well-nourished and well-groomed woman in no acute distress HENT: Normocephalic, no gross hearing deficits, mucous membranes moist, pupils equal and round Respiratory: No increased work of breathing Cardiovascular: No peripheral edema Skin: Warm and dry. Right lower extremity wound with thin layer of slough overlying some granulation. No surrounding erythema. Wound vac reapplied Psych: Mood and affect normal Neuro: Grossly intact. Full sensation of right lower extremity Objective: Vital Signs Temp Pulse Resp BP Pulse Ox 36.8 C 57 L 18 151/86 H 95 08/17/18 12:04 08/17/18 12:04 08/17/18 12:04 08/17/18 12:04 08/17/18 12:04 08/16/18 08/17/18 08/18/18 05:59 05:59 05:59 Intake Total 400 300 Output Total 1300 800 Balance -900 -500 ICD10 Worksheet Patient Problems: Problems Problem Status Onset Squamous cell carcinoma of skin of lower extremity Acute
--- NOTE | 2018-08-17 15:04 | ASMTCMCOM ---
CM Note CM Note Notes: Pts case discussed w/ COLLEEN Worley. [facility] has approved pts wound vac. CM brought the wound vac to pts room. Pt is not medically stable to d/c today. Pt will stay another night for pain management. CM arranged for pt to be seen by [facility]. Desi is requesting that [facility] checks in daily to make sure there isn't a leak. Pt will come into surgery's office on Thursday for a vac change. CM to follow. Plan: CHILO CARROLL Date Signed: 08/17/2018 03:04 PM Electronically Signed By:EYAL Martinez
--- NOTE | 2018-08-17 17:37 | PDPAINCON ---
Pain Management Consultation Patient referred by : Erik - Subjective Pain at rest (/10): 4 Pain is: under control Activity: able to ambulate, out of bed with assistance - Objective Technique: continuous peripheral nerve block Site: sciatic Continuous infusion: ropivicaine Catheter site: clean, dry, intact, no erythema/edema/exudate Sensory and motor exam: consistent with block Vital signs: stable - Assessment/Plan Assessment/Plan: pain well-controlled, continue current mgmt (Pt doing well. Plan to pull popliteal catheter tomorrow morning prior to discharge.)
[2018-08-17] MEDS: traMADol 50 MG TAB PO PRN (20:09)
[2018-08-17] MEDS: MELATONIN 3 MG TAB PO SCH (21:14)
[2018-08-17] MEDS: ASPIRIN 81 MG CHEWABLE TAB PO SCH (21:14)
[2018-08-17] MEDS: HYDROCODONE/APAP 5/325 TAB PO PRN (21:14)
[2018-08-17] MEDS: metFORMIN HCL 500 MG TAB PO SCH (21:15)
[2018-08-18] MEDS: HYDROCODONE/APAP 5/325 TAB PO PRN ×4 (01:19→14:31)
--- NOTE | 2018-08-18 06:39 | PDPAINCON ---
Pain Management Consultation Patient referred by : Erik - Subjective Pain at rest (/10): 9 (primarily in saphenous nerve distribution) Pain with activity (/10): 9 Pain is: high, but manageable (Pt says pain drops to a 4 with the hydrocodone) Activity: able to ambulate (using a walker in hospital, does not normally use any ambulation assist device) - Objective Technique: continuous peripheral nerve block Site: sciatic Continuous infusion: ropivicaine Catheter site: no erythema/edema/exudate Sensory and motor exam: other Vital signs: stable - Assessment/Plan Assessment/Plan: other (Plan is for D/C home today. Pain can be controlled with oral meds. Catheter D/Mannie with tip intact per surgeon's request.)
[2018-08-18 07:23] VITALS: BP 156/100
[2018-08-18] MEDS: CYCLOBENZAPRINE 10 MG TAB PO SCH (09:10)
[2018-08-18] MEDS: SERTRALINE HCL 100 MG TAB PO SCH (09:10)
[2018-08-18] MEDS: PREGABALIN 25 MG CAP PO SCH (09:10)
[2018-08-18] MEDS: FUROSEMIDE 40 MG TAB PO SCH (09:10)
[2018-08-18] MEDS: CARVEDILOL 25 MG TAB PO SCH (09:10)
[2018-08-18] MEDS: LOSARTAN POTASSIUM 50 MG TAB PO SCH (09:10)
[2018-08-18] MEDS: ENOXAPARIN 40 MG/0.4 ML SYR SC SCH ×2 (09:11→09:16)
[2018-08-18] MEDS: TRIAMCINOLONE 0.1% TD SCH (09:12)
--- NOTE | 2018-08-18 09:23 | PDIAF ---
- Diagnosis Diagnosis: RLE chronic wound Code Status: Full Code - Medication Management Discharge Medications: electronically signed and located in the Home Medication List. - Orders Services needed: Home Care, Registered Nurse Home Care Face to Face: I certify that this patient was under my care and that I had the required [id number] encounter meeting the encounter requirements on the discharge day. My findings support the fact that the patient is homebound as defined in Home Care Face to Face Continued: CMS Chapter 7 Medicare Benefits Manual 30.1.1 , The condition of the patient is such that there exists a normal inability to leave home and consequently, leaving home would require a considerable and taxing effort. Isolation Type: None Diet Recommendation: no restrictions on diet Diet Texture: Regular Texture Diet Wound Care Instructions: Wound vac in place - change MWF. Check patient daily for any issues with the wound vac during the first week of service, then may decrease frequency of visits. Patient has pain out of proportion to wound, so her first vac change will be at our office on 08/20 Activity/Weight Bearing Restrictions: no restrictions Additional Instructions: Do not get wound vac wet - sponge baths only. Follow-up on Thursday for first wound vac change. Call home care or [facility] if technical difficulties with wound vac. Call our office with worsening symptoms, questions or concerns - Follow Up Care Current Providers and Referrals: Diane Valencia MD [Medical Doctor] - 08/20/18 Gillian Son MD [Primary Care Provider] -
--- NOTE | 2018-08-18 13:03 | SOAPPROG ---
SOAP Progress Note Assessment/Plan: Assessment/Plan: 73 year old woman s/p RLE wound debridement 08/13/2018. Hx of RT for SCC RLE,subsequent chronic wound had been treated in Wound Clinic. On Q removed today continue wound vac, change vac 2-3x per week 1st change on Thursday at wound clinic or my office Home care S: Still in pain. O: Alert, pleasant, NAD HR regular no increased WOB RLE-less surrounding erythema - vac changed to 100 Plan: 08/14/18 12:02 08/14/18 13:44 08/15/18 11:23 08/15/18 12:41 08/18/18 13:02 Objective: Vital Signs Temp Pulse Resp BP Pulse Ox 36.6 C 59 L 14 156/100 H 95 08/18/18 07:20 08/18/18 07:20 08/18/18 07:20 08/18/18 07:20 08/18/18 07:20 08/17/18 08/18/18 08/19/18 05:59 05:59 05:59 Intake Total 300 300 Output Total 800 350 Balance -500 -50 ICD10 Worksheet Patient Problems: Problems Problem Status Onset Squamous cell carcinoma of skin of lower extremity Acute - ICD10 Problem Qualifiers (1) Squamous cell carcinoma of skin of lower extremity Qualifiers: Laterality: right Qualified Code(s): C44.722 - Squamous cell carcinoma of skin of right lower limb, including hip
--- NOTE | 2018-08-18 14:38 | ASMTLACE ---
LALOE Length of stay for Answers: 4-6 days current admission Acuity / Level of Answers: Yes Care: Did the patient have an inpatient admission? Comorbidities - select Answers: Diabetes (uncontrolled or all that apply controlled) Other Notes: Squamous cell carcinoma # of Emergency department Answers: 0 visits in the last 6 months Social determinants Answers: History of trauma (PTSD, child abuse, domestic violence, etc.) Mental health diagnosis (anxiety, depression, pers onality disorders, etc.) Score: 15 Date Signed: 08/18/2018 02:37 PM Electronically Signed By:EYAL Martinez
--- NOTE | 2018-08-18 14:40 | ASMTDCNOTE ---
Case Management Discharge Discharge Order Complete? Answers: Yes Patient to Obtain Answers: via Family Medications Transportation Arranged Answers: Family/Friends EMTALA Complete Answers: No Case Management Transport Answers: No Form Complete Faxed Final Orders Answers: Yes Agency/Facility Transfer Answers: Yes Report Printed & Faxed to Receiving Agency Family Notified Answers: No Discharge Comments Notes: Pts case discussed w/ CHILO Pedraza. Pt is being d/c'd today. CM notified [facility] of the d/c. CM had pt sign [facility] confirmation that she received the wound vac and it is now in her possession. CM left pt a copy. CM sent a copy to [facility] and another copy is in pts chart. CM available for changes. Plan: CHILO CARROLL Date Signed: 08/18/2018 02:39 PM Electronically Signed By:EYAL Martinez
--- NOTE | 2018-08-19 12:18 | ASDISCHSUM ---
Discharge Information Plan Status:Home with Home Health Medically Cleared to Leave: Discharge Date:08/18/2018 03:48 PM CM D/C Disposition:Home Health Service ADT D/C Disposition:Home Health Service Projected Discharge Date:08/17/2018 11:00 AM Transportation at D/C:Family Discharge Delay Reason: Follow-Up Date:08/17/2018 11:00 AM Discharge Slot: Final Diagnosis: Placement Information Referral Type:*Home Health Care Services Referral ID:[id number] Provider Name:[facility] Care Address 1:[address] [place] [address] Address 2: City:[place] Selection Factors: State:[place] Patient Contact Information Contact Name:ROSEANN Relationship:Friend Address: Work Phone: City:[place] Alternate Phone: State/Zip Code:[place] Email: Financial Information Financial Class:Medicare Primary Plan Desc:MEDICARE INPATIENT Primary Plan Number:[id number] Secondary Plan Desc:[employer]ARP/MDR SUPPLEMENT Secondary Plan Number:[id number] Assessment Information LACE LACE Length of stay for Answers: 4-6 days current admission Acuity / Level of Answers: Yes Care: Did the patient have an inpatient admission? Comorbidities - select Answers: Diabetes (uncontrolled or all that apply controlled) Other Notes: Squamous cell carcinoma # of Emergency department Answers: 0 visits in the last 6 months Social determinants Answers: History of trauma (PTSD, child abuse, domestic violence, etc.) Mental health diagnosis (anxiety, depression, pers onality disorders, etc.) Score: 15 Date Signed: 08/18/2018 02:37 PM Electronically Signed By:EYAL Martinez [facility] CM Progress Note CM Note CM Note Notes: Pt admitted for scheduled wound debridement, with wound vac. Met with pt, PT recommends home care but pt doesn't think she'll need it. She may go home with wound vac but no definite plan as of yet. CM will f/u. She lives at home alone in an apartment, says she has supportive friends. DC Plan: TBD Date Signed: 08/14/2018 03:43 PM Electronically Signed By:Rosa Wilcox RN [facility] CM Progress Note CM Note CM Note Notes: Pts case discussed w/ COLLEEN Weeks. Pt may need a wound vac at time of d/c. CM sent signed prescription to [facility]. CM met w/ pt for dispo planning. Therapies are both recommending HC. She is agreeable to using [facility]. She has used [facility] in the past and had a great experience. [facility] able to accept. CM to follow. Plan: [facility]; PT, OT, RN Date Signed: 08/16/2018 04:05 PM Electronically Signed By:EYAL Martinez [facility] CM Progress Note CM Note CM Note Notes: Pts case discussed w/ COLLEEN Worley. [facility] has approved pts wound vac. CM brought the wound vac to pts room. Pt is not medically stable to d/c today. Pt will stay another night for pain management. CM arranged for pt to be seen by [facility]. Desi is requesting that [facility] checks in daily to make sure there isn't a leak. Pt will come into surgery's office on Thursday for a vac change. CM to follow. Plan: CARLY RN Date Signed: 08/17/2018 03:04 PM Electronically Signed By:EYAL Martinez Case Management Discharge Plan Note Case Management Discharge Discharge Order Complete? Answers: Yes Patient to Obtain Answers: via Family Medications Transportation Arranged Answers: Family/Friends EMTALA Complete Answers: No Case Management Transport Answers: No Form Complete Faxed Final Orders Answers: Yes Agency/Facility Transfer Answers: Yes Report Printed & Faxed to Receiving Agency Family Notified Answers: No Discharge Comments Notes: Pts case discussed w/ CHILO Pedraza. Pt is being d/c'd today. CM notified [facility] of the d/c. CM had pt sign [facility] confirmation that she received the wound vac and it is now in her possession. CM left pt a copy. CM sent a copy to [facility] and another copy is in pts chart. CM available for changes. Plan: CHILO CARROLL Date Signed: 08/18/2018 02:39 PM Electronically Signed By:EYAL Martinez Intervention Information
--- NOTE | 2018-08-20 12:05 | GDS ---
[f rep st] DISCHARGE SUMMARY REASON FOR HOSPITALIZATION: 73-year-old woman with previous medical history of radiation therapy for squamous cell carcinoma and subsequent chronic right lower extremity wound has been treated at [facility] Clinic. She presents for surgical debridement under general anesthesia. PRIMARY DIAGNOSIS: Chronic wound, right lower extremity, secondary to radiation therapy for squamous cell carcinoma. HOSPITAL COURSE: Surgical debridement performed 08/13/2018 in OR with wound vac veraflo placement. Postoperatively, the patient was placed on IV pain medication. The patient reported pain that was not controlled with IV oral pain medications immediately postop. Anesthesia was consulted and an ON-Q continuous nerve block catheter was placed in the right popliteal area. Lyrica was started for neuropathic pain. Pain was well controlled with ON-Q. She expressed high levels of anxiety concerning dressing changes going forward. After ON-Q catheter removed, the patient was again painful, but felt it was manageable with oral pain medications. Vital signs remained stable and she was afebrile during the course of her hospitalization. Discharge 08/18/2018. CONDITION AT DISCHARGE: Ambulates independently, still has pain but manageable with medications, tolerates regular diet. Discharged home with wound VAC and home health care. DISCHARGE MEDICATIONS: Patient left with these new prescriptions: 1. Acetaminophen 325 mg 2 tablets by mouth every 4 hours as needed for pain. 2. Pregabalin 25 mg 1 tablet 3 times daily for neuropathic pain. The patient was instructed to continue these medications already at home. 1. Losartan potassium 50 mg p.o. b.i.d. 2. Furosemide 40 mg by mouth daily. 3. Coreg 25 mg by mouth twice daily with meals. 4. Sertraline 100 mg by mouth daily. 5. Vitamin D 5000 units by mouth daily. 6. Aspirin 81 mg by mouth at hour of sleep. 7. Amlodipine 2.5 mg by mouth daily. 8. Metformin 500 mg by mouth at bedtime. 9. Enbrel 50 mg subcutaneously every 3 days. 10. Acetaminophen 1000 mg by mouth every 6 hours as needed for mild pain. 11. Triamcinolone 0.1% ointment 1 application twice daily. 12. Oxycodone 5 mg by mouth at bedtime as needed for moderate pain. FOLLOWUP: Return to clinic August 20 for first wound VAC change. Call home health care if technical difficulties with home wound VAC. Will need wound VAC dressing changes 2 to 3 times per week. /[id number]/MODL MTDD
--- NOTE | 2018-08-23 07:44 | PQFORM ---
PHYSICIAN QUERY FORM Needs Your Response This query form is being sent to you to assure this patient record is coded properly. Please respond to the question below: STRIPPER AND TAPER QUESTION: Dear Dr. Villanueva, This patient had a debridement of devitalized tissue for her chronic wound. Can this removal of soft tissue to the level of fascia be further described as?: Yes excisional debridement nonexcisional debridement other Thank you for clarifying, ISAI Bowman HIM Coding INSTRUCTIONS FOR RESPONSE: Answer question by clicking on the "Edit Document" button. Move cursor to area below the stars. When complete, hit "Save." Click on the "Sign" button, then click "Sign" again. Type in your PIN and hit "Enter." MTDD
== END 2018-08-18 15:48 | disposition home health service (06) | DRG 571 ==
LOC: F3N 09:31 → F3E 14:35 → OBSVTOIN 08-14 17:27
PROVIDERS: ADMIT Surgery; ATTEND Surgery
PROC: 0JBN0ZZ Excision of Right Lower Leg Subcutaneous Tissue and Fascia, Open Approach (ICD-10-PCS; principal; 2018-08-13 11:30)
DX: L59.8 Other specified disorders of the skin and subcutaneous tissue related to radiation (principal); L97.919 Non-pressure chronic ulcer of unspecified part of right lower leg with unspecified severity; I10 Essential (primary) hypertension; G57.91 Unspecified mononeuropathy of right lower limb; E21.3 Hyperparathyroidism, unspecified; Z85.828 Personal history of other malignant neoplasm of skin; Z98.1 Arthrodesis status
CPT/HCPCS: 97116-GP; 97161-GP; 97166-GO; 97530-GO; 97530-GP; 97535-GO; J0690; J1100; J1170; J1650; J1885; J2060; J2250; J2270; J2405; J2704; J2795; J3010

== ENCOUNTER 2018-09-30 09:41 | Inpatient (IN) | payer OTHER, MEDICARE ==
--- NOTE | 2018-09-29 17:41 | GHP ---
[f rep st] PREOP HISTORY AND PHYSICAL DATE OF ADMISSION: 09/30/2018 PREOPERATIVE DIAGNOSIS: Right lower extremity chronic wound. HISTORY OF PRESENT ILLNESS: A 73-year-old woman with a right lower extremity wound, originally squamous cell carcinoma, treated with radiation. She was taken to the operating room on 08/13/2018 for debridement of skin and soft tissue with wound VAC placement. The wound VAC was too painful and this was discontinued. She completed a course of antibiotics for cellulitis. She has been seen at the [facility] but has decided to defer treatment. She has challenges with pain control issues. No evidence of active infection, including swelling, redness, fevers, or chills. PAST MEDICAL HISTORY: Anxiety, depression, type 2 diabetes, hyperlipidemia, hyperparathyroidism, hypertension, obesity, psoriasis, chronic renal insufficiency, vitamin D deficiency. PAST SURGICAL HISTORY: Debridement as above, cholecystectomy, right knee replacement, ectopic removal. FAMILY HISTORY: Significant for diabetes, coronary artery disease and hypertension. ALLERGIES: Include hyaluronidase, sulfa. SOCIAL HISTORY: She is with 2 children and several grandchildren. Denies tobacco, alcohol or recreational drug use. REVIEW OF SYSTEMS: No fevers or chills. PHYSICAL EXAM: GENERAL: Well-developed, well-nourished woman in no acute distress. HEENT: Normocephalic, atraumatic. No hearing deficits. Pupils equal and round. No scleral icterus. Mucous membranes moist. RESPIRATORY: No increased work of breathing. CARDIOVASCULAR: No peripheral edema. SKIN: Right lower extremity wound approximately 6 x 4 x 0.2 cm with 100% slough in the base of the wound. No surrounding erythema, induration, or evidence of active infection. PSYCH: Mood and affect normal. NEURO: Grossly intact. IMPRESSION AND PLAN: A 73-year-old woman with a chronic right lower extremity wound secondary to radiation burn for squamous cell carcinoma. We will perform debridement of skin and soft tissue and possible placement of an advanced wound- healing product. We discussed risks of surgery, including but not limited to infection, bleeding, damage to surrounding structures, scar tissue, continued delayed wound healing. She understands risks and would like to proceed. 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 Patient additionally seen by Dr. Diane Valencia. /[id number]/[facility]
[2018-09-30] MEDS ORDERED: BUPIVACAINE 0.5% 30 ML SDV ONE (09:43)
[2018-09-30] MEDS ORDERED: ceFAZolin 2 GM/DEXTROSE 100 ML IV ONE (09:54)
[2018-09-30] MEDS ORDERED: LR 1,000 ML IV ONE (09:54)
--- NOTE | 2018-09-30 10:26 | PDANEPAE ---
ANE History of Present Illness 73 yo female with nonhealing wound on R aragon. ANE Past Medical History - Cardiovascular History Hx Hypertension: Yes Hx Arrhythmias: No Hx Chest Pain: No Hx Coronary Artery / Peripheral Vascular Disease: No Hx CHF / Valvular Disease: No Hx Palpitations: No Cardiovascular History Comment: PCP MONITORS BP MEDICATIONS CURRENTLY. WAS PREVIOUSLY SEEN BY [facility] - Pulmonary History Hx COPD: No Hx Asthma/Reactive Airway Disease: No Hx Recent Upper Respiratory Infection: No Hx Oxygen in Use at Home: No Hx Sleep Apnea: No Sleep Apnea Screening Result - Last Documented: Negative Pulmonary History Comment: EXCESSIVE MUCOUS PRODUCTION D/T MOLD exposure per pt - Neurologic History Hx Cerebrovascular Accident: No Hx Seizures: No Hx Dementia: No Neurologic History Comment: UNABLE TO MOVE NECK FULL ROM D/T HARDWARE AND PREVIOUS SURGERIES - Endocrine History Hx Diabetes: No Hypothyroid: No Hyperthyroid: No Obesity: mild Endocrine History Comment: HYPERPARATHYROIDISM FOLLOWED BY DR PALMA - Renal History Hx Renal Disorders: No - Liver History Hx Hepatic Disorders: No - Neurological & Psychiatric Hx Hx Neurological and Psychiatric Disorders: Yes Neurological / Psychiatric History Comment: DEPRESSION D/T DIFFICULT LAST FEW YEARS - Cancer History Hx Cancer: Yes 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 WEARS GLASSES. NEEDS HEARING AIDES. RADIATION JOSE TO BLE'S - Chronic Pain History Chronic Pain: Yes (BLE'S) - Surgical History Prior Surgeries: 08/13/18 right leg debridement, wound vac placement with Erik. REVISION OF FUSION AT C1 07/23/17 S/P FALL. ANT & POST FUSION 11/2016. RIGHT TKA 2000. LAP REPAIR ING HERNIA WITH MELLO 11/16/12. LAP ADHESIOLYSIS AND UMBILICAL HERNIORRAPHY WITH MELLO 07/20/12. ANE Review of Systems Review of Systems: - Exercise capacity METS (RN): 4 METS - Systems EENMT: Reports: other (excess mucous production per pt) Cardiac: Reports: no symptoms Respiratory: Reports: no symptoms ANE Patient History - Allergies Allergies/Adverse Reactions: Sulfa (Sulfonamide Antibiotics) Allergy (Verified 08/10/18 11:48) Anaphylaxis - Home Medications Home Medications: Carvedilol [Coreg (*)] BIDMEAL 04/04/15 [Last Taken 09/30/18] Furosemide [Lasix 40 MG (*)] 04/04/15 [Last Taken 09/28/18] Losartan Potassium [Cozaar 50 mg (*)] BID 04/04/15 [Last Taken 09/30/18] Sertraline HCl [Zoloft 100mg (*)] 06/22/17 [Last Taken 09/30/18] Aspirin [Aspirin 81mg (*)] 08/04/18 [Last Taken 08/31/18] Cholecalciferol Vit D3 [Vitamin D3 (*)] 08/04/18 [Last Taken 09/29/18] amLODIPine BESYLATE [Norvasc 2.5 mg (*)] 08/04/18 [Last Taken 09/30/18] Acetaminophen [Tylenol ES 500 mg (*)] Q6 PRN 08/13/18 [Last Taken 09/30/18] Etanercept [Enbrel] SQ Q3D 08/13/18 [Last Taken 09/28/18] Metformin HCl [Fortamet] 08/13/18 [Last Taken 09/28/18] Triamcinolone 0.1% Ointment BID 08/13/18 [Last Taken 09/27/18] Melatonin [Melatonin 3 MG (*)] HS 09/29/18 [Last Taken Unknown] Pregabalin [Lyrica] TID 09/29/18 [Last Taken Unknown] oxyCODONE IR [Oxycodone Ir (*)] HS PRN 09/29/18 [Last Taken 09/30/18] - Anes Hx Anes Hx: slow to awaken from anesthesia - Smoking Hx Smoking Status: Never smoked - Family Anes Hx Family Anes Hx: neg - N/A Family Hx Anesthesia Complications: none ANE Labs/Vital Signs - Vital Signs Vital Signs: reviewed preoperatively; see RN documention for details Height: 162.56 cm Weight: 84.368 kg ANE Physical Exam - Airway Neck exam: decreased ROM, spinal fusion Mallampati Score: Class 3 Mouth exam: normal dental/mouth exam - Pulmonary Pulmonary: clear to auscultation - Cardiovascular Cardiovascular: regular rate and rhythym - ASA Status ASA Status: III ANE Anesthesia Plan Anesthesia Plan: GA w LMA Regional Anesthesia: continuous NB, adductor canal FNB, POPC/PSR
[2018-09-30] MEDS ORDERED: fentaNYL 100 MCG/2 ML INJ ONE (12:08)
[2018-09-30] MEDS ORDERED: ROPIVACAINE HCL 150 MG/30 ML INJ ONE (12:08)
[2018-09-30] MEDS ORDERED: LIDOCAINE 2% 100 MG/5 ML SYR ONE (12:48)
[2018-09-30] MEDS ORDERED: DEXAMETHASONE 4 MG/ML VIAL ONE (12:48)
[2018-09-30] MEDS ORDERED: PROPOFOL 200 MG/20 ML VIAL ONE ×2 (12:48→12:49)
--- NOTE | 2018-09-30 12:58 | POSTOPPROG ---
Post Op Note Date of Operation: 09/30/18 Surgeon: Diane Valencia Anesthesiologist: isaias Anesthesia: GET(General Endotracheal) Pre-op Diagnosis: chronic wound RLE squamous cell radiation Post-op Diagnosis: same Indication: 73 yo with radiation to RLE for squamous cell with chronic wound Procedure: debride skin soft tissue RLE with application tissue derived skin sub 4.5x6 Findings: Amniofill [id number] exp 12/20/2022 Inf/Abcess present in the surg proc area at time of surgery?: No EBL: Minimal
[2018-09-30] MEDS ORDERED: ACETAMINOPHEN 325 MG TAB PO PRN (12:59)
[2018-09-30] MEDS ORDERED: ONDANSETRON DISINTEGRATING 4 MG TAB PO PRN (12:59)
[2018-09-30] MEDS ORDERED: ONDANSETRON 4 MG/2 ML VIAL IVP PRN ×2 (12:59→13:16)
[2018-09-30] MEDS ORDERED: ePHEDrine SULFATE 25 MG/5 ML SYR ONE (13:13)
[2018-09-30] MEDS ORDERED: ROPIVACAINE 0.2% 1,100 MG in PUMP SET 1 EA NB SCH (13:15)
[2018-09-30] MEDS ORDERED: NALOXONE HCL 0.4 MG/ML INJ IVP PRN (13:16)
[2018-09-30] MEDS ORDERED: oxyCODONE IR 5 MG TAB PO PRN (13:16)
[2018-09-30] MEDS ORDERED: PROMETHAZINE HCL 25 MG/ML INJ IVP PRN (13:16)
[2018-09-30] MEDS ORDERED: fentaNYL 100 MCG/2 ML INJ IVP PRN (13:16)
[2018-09-30] MEDS: LOSARTAN POTASSIUM 50 MG TAB PO SCH (22:07)
[2018-09-30] MEDS: CARVEDILOL 25 MG TAB PO SCH (22:07)
--- NOTE | 2018-10-01 08:56 | SOAPPROG ---
SOAP Progress Note Assessment/Plan: Assessment/Plan: 73 yo F POD#1 s/p debridement skin/soft tissue of RLE chronic wound 2/t radiation Pain control Amniofill in place x 1 week - do not remove. may change outer bandage as needed - change prior to DC On q pain pump - cannot feel RLE d/t original block. feel burning sensation but numbness Walking boot for ambulation while RLE numb - otherwise unsafe Dispo: inpatient until sensation returns to RLE and pain control. Seen with Dr. Valencia. S: does not like sensation of numbness, pain controlled. will hold off on HBO for now O: sitting up in chair, comfortable, NAD No increased WOB RLE dressings intact On-q pain pump intact Objective: Vital Signs Temp Pulse Resp BP Pulse Ox 36.3 C 64 16 128/61 H 90 L 10/01/18 07:46 10/01/18 07:46 10/01/18 07:46 10/01/18 07:46 10/01/18 07:46 Laboratory Results 09/30/18 10:20 09/30/18 10/01/18 10/02/18 05:59 05:59 05:59 Intake Total 500 300 Output Total 10 Balance 490 300 ICD10 Worksheet Patient Problems: Problems Problem Status Onset Squamous cell carcinoma of skin of lower extremity Acute
[2018-10-01] MEDS: SERTRALINE HCL 100 MG TAB PO SCH (09:05)
[2018-10-01] MEDS: CARVEDILOL 25 MG TAB PO SCH ×2 (09:05→20:48)
[2018-10-01] MEDS: FUROSEMIDE 40 MG TAB PO SCH (09:05)
[2018-10-01] MEDS: LOSARTAN POTASSIUM 50 MG TAB PO SCH ×2 (09:05→20:48)
--- NOTE | 2018-10-01 10:19 | ASMTCMCOM ---
CM Note CM Note Notes: Patient is POD #1 debridement of skin/soft tissue from chronic RLE wound site. She is on a pain pump and needs to use walking boot until numbness resolves. She is normally independent and lives alone. PT/OT will work with her until she is safe to go home. No d/c needs anticipated; Case Management available if needs arise. Date Signed: 10/01/2018 10:19 AM Electronically Signed By:Estephania Vega RN
--- NOTE | 2018-10-01 12:27 | PDMN ---
Medical Necessity Medical necessity: Change to IP, as of 10/01/18, per PA; los >2 mn for ongoing eval of RLE burning/numbness s/p RLE wound debridement (cpt 60678); requiring further monitoring & pain management; comorbid advanced age, diabetes, chronic renal insufficiency
[2018-10-01] MEDS ORDERED: ROPIVACAINE HCL 150 MG/30 ML INJ ONE (14:43)
--- NOTE | 2018-10-01 15:03 | PDPAINCON ---
Pain Management Consultation Patient referred by : Erik - Subjective Pain at rest (/10): 4 Pain is: under control Side effects include: No drowsy, No itchiness Activity: unable to ambulate (initial block from 24 hours ago still in effect, but receding) - Objective Technique: continuous peripheral nerve block Site: sciatic Catheter site: clean, dry, intact, no erythema/edema/exudate Sensory and motor exam: consistent with block Vital signs: stable - Assessment/Plan Assessment/Plan: pain well-controlled, continue current mgmt (POD 1 s/p RLE wound debridement with popliteal sciatic catheter with OnQ pump running 0.2% ropi at 6ml/hr and adductor canal catheter which was redosed today with 0.5% ropivacaine 20ml and removed, without complication. She does not like the sensation of partial numbness/weakness in her foot caused by the initial block yesterday, but this is receding and she is appropriately regaining neuromotor function. If, for some reason, she is still unable to ambulate tomorrow, we discussed d/c-ing the pop. sciatic catheter. At this time we will continue it, as it is likely providing some benefit. Will continue to follow. )
[2018-10-01] MEDS ORDERED: LIPID EMULSION 20% 100 ML IV PRN (15:04)
[2018-10-01] MEDS: metFORMIN SR 500 MG TAB PO SCH (20:48)
[2018-10-01] MEDS: oxyCODONE IR 5 MG TAB PO PRN ×2 (20:50→21:27)
[2018-10-02] MEDS: LOSARTAN POTASSIUM 50 MG TAB PO SCH ×2 (08:31→20:19)
[2018-10-02] MEDS: CARVEDILOL 25 MG TAB PO SCH ×2 (08:32→20:20)
[2018-10-02] MEDS: SERTRALINE HCL 100 MG TAB PO SCH (08:32)
[2018-10-02] MEDS: FUROSEMIDE 40 MG TAB PO SCH (08:32)
--- NOTE | 2018-10-02 09:53 | ASMTDCNOTE ---
Case Management Discharge Discharge Order Complete? Answers: Yes Patient to Obtain Answers: Independently Medications Transportation Arranged Answers: Family/Friends Discharge Comments Notes: CM met with Patient to confirm she was comfortable going home with pain pump. RN confirms she knows how to take it out herself at home. Patient will be discharged independently. CM available for any changes. Date Signed: 10/02/2018 09:53 AM Electronically Signed By:Hellen Beckman
--- NOTE | 2018-10-02 09:54 | ASMTLACE ---
[place] Length of stay for Answers: 1 day current admission Comorbidities - select Answers: Diabetes (uncontrolled or all that apply controlled) Opioid dependence / Chronic pain Other Notes: HLD; HTN # of Emergency department Answers: 0 visits in the last 6 months Social determinants Answers: Mental health diagnosis (anxiety, depression, pers onality disorders, etc.) Score: 10 Date Signed: 10/02/2018 09:53 AM Electronically Signed By:Hellen Beckman
--- NOTE | 2018-10-02 10:12 | SOAPPROG ---
SOAP Progress Note Assessment/Plan: Assessment/Plan: Assessment/Plan: 73 yo F POD#2 s/p debridement skin/soft tissue of RLE chronic wound 2/t radiation Pain under better control. Still has some burning. Sensation intact and walking now. Amniofill in place x 1 week - do not remove. may change outer bandage as needed. On q pain pump - patient prefers not to go home with this. Can remove, but would want to observe to ensure adequate pain control with norco. Per pt, anesthesia showed her how to remove it on her own at home. Walking boot for ambulation optional now that RLE sensation has returned. Dispo: home today. S: sensation back. has an occasional shooting nerve pain. prefers norco rather than oxycodone. wants to go home today. feeling steady on her feet. O: sitting up in chair, comfortable, NAD ctab rrr abd soft RLE dressings intact On-q pain pump intact 10/02/18 10:07 Objective: Vital Signs Temp Pulse Resp BP Pulse Ox 36.4 C 66 16 186/94 H 94 10/02/18 08:00 10/02/18 08:00 10/02/18 08:00 10/02/18 08:00 10/02/18 08:00 Laboratory Results 09/30/18 10:20 10/01/18 10/02/18 10/03/18 05:59 05:59 05:59 Intake Total 500 300 Output Total 10 Balance 490 300 ICD10 Worksheet Patient Problems: Problems Problem Status Onset Squamous cell carcinoma of skin of lower extremity Acute
--- NOTE | 2018-10-02 11:24 | PDPAINCON ---
Pain Management Consultation Patient referred by : Erik - Subjective Pain is: under control Activity: able to ambulate - Objective Technique: continuous peripheral nerve block (popliteal sciatic) Catheter site: clean, dry, intact Sensory and motor exam: consistent with block Vital signs: stable - Assessment/Plan Assessment/Plan: pain well-controlled, continue current mgmt (POD 2 s/p RLE wound debridement with popliteal sciatic catheter with OnQ pump running 0.2% ropi at 6ml/hr. Overall doing better today, able to ambulate, pain better controlled. Discharge planned for this afternoon. Patient has hesitations about going home with the OnQ pump; however I encouraged her to keep it in place as it is likely providing her some benefit and her pain could worsen significantly with discontinuation of the nerve block. She is amenable to going home with the catheter, and she was instructed on how to remove it when the time comes. We will call her daily while the catheter is still in place.)
[2018-10-02] MEDS: HYDROCODONE/APAP 5/325 TAB PO PRN ×4 (12:02→20:20)
[2018-10-02] MEDS ORDERED: IBUPROFEN 600 MG TAB PO PRN (19:28)
[2018-10-02] MEDS: metFORMIN SR 500 MG TAB PO SCH (20:19)
[2018-10-03] MEDS: HYDROCODONE/APAP 5/325 TAB PO PRN ×3 (03:08→11:34)
[2018-10-03 07:44] VITALS: BP 157/91
--- NOTE | 2018-10-03 08:15 | SOAPPROG ---
SOAP Progress Note Assessment/Plan: Assessment/Plan: Assessment/Plan: 73 yo F POD#3 s/p debridement skin/soft tissue of RLE chronic wound 2/t radiation Postponed discharge 2/ to [facility]. Improved with adequate pain control and routine home med antihypertensives. Removed her own On Q pump last night bc of increasing numbness. Pain under control c naorco and ibuprofen. Amniofill in place x 1 week - do not remove. will change outer bandage before dc. Walking boot for ambulation optional now that RLE sensation has returned. Dispo: home today. Seen c Dr. Hernandez. S: sensation back. wants to go home. O: sitting up in chair, comfortable, NAD ctab rrr abd soft RLE dressings intact 10/03/18 08:12 Objective: Vital Signs Temp Pulse Resp BP Pulse Ox 36.3 C 63 18 157/91 H 95 10/03/18 07:43 10/03/18 07:43 10/03/18 07:43 10/03/18 07:43 10/03/18 07:43 Laboratory Results 09/30/18 10:20 10/02/18 10/03/18 10/04/18 05:59 05:59 05:59 Intake Total 300 Balance 300 ICD10 Worksheet Patient Problems: Problems Problem Status Onset Squamous cell carcinoma of skin of lower extremity Acute
--- NOTE | 2018-10-03 10:03 | ASMTCMCOM ---
CM Note CM Note Notes: Patient received discharge orders this morning, CM met with patient. She shares her daughter will take her home, she removed the pain pump herself last night, she states she doesn't think she will require much follow up. She has a few steps to get into her home but is on one level. CM delivered IM, CM placed signed IM in back of chart. CM available to follow if discharge needs arise. Date Signed: 10/03/2018 10:03 AM Electronically Signed By:Tea Nino
--- NOTE | 2018-10-03 10:06 | ASDISCHSUM ---
Discharge Information Plan Status:Home with No Needs Medically Cleared to Leave: Discharge Date: CM D/C Disposition:Home, Routine, Self-Care ADT D/C Disposition:Home, Routine, Self-Care Projected Discharge Date: Transportation at D/C:Family Discharge Delay Reason: Follow-Up Date: Discharge Slot: Final Diagnosis: Placement Information Patient Contact Information Contact Name:CHATO Relationship:Daughter Address: Work Phone: City:[place] Alternate Phone: State/[place] Email: Financial Information Financial Class:Medicare Primary Plan Desc:MEDICARE INPATIENT Primary Plan Number:[id number] Secondary Plan Desc:PRINCE/TANI SUPPLEMENT Secondary Plan Number:[id number] Assessment Information LACE LACE Length of stay for Answers: 1 day current admission Comorbidities - select Answers: Diabetes (uncontrolled or all that apply controlled) Opioid dependence / Chronic pain Other Notes: HLD; HTN # of Emergency department Answers: 0 visits in the last 6 months Social determinants Answers: Mental health diagnosis (anxiety, depression, pers onality disorders, etc.) Score: 10 Date Signed: 10/02/2018 09:53 AM Electronically Signed By:Hellen Beckman [facility] CM Progress Note CM Note CM Note Notes: Patient is POD #1 debridement of skin/soft tissue from chronic RLE wound site. She is on a pain pump and needs to use walking boot until numbness resolves. She is normally independent and lives alone. PT/OT will work with her until she is safe to go home. No d/c needs anticipated; Case Management available if needs arise. Date Signed: 10/01/2018 10:19 AM Electronically Signed By:Estephania Vega RN Case Management Discharge Plan Note Case Management Discharge Discharge Order Complete? Answers: Yes Patient to Obtain Answers: Independently Medications Transportation Arranged Answers: Family/Friends Discharge Comments Notes: CM met with Patient to confirm she was comfortable going home with pain pump. RN confirms she knows how to take it out herself at home. Patient will be discharged independently. CM available for any changes. Date Signed: 10/02/2018 09:53 AM Electronically Signed By:Hellen Beckman [facility] Progress Note CM Note CM Note Notes: Patient received discharge orders this morning, CM met with patient. She shares her daughter will take her home, she removed the pain pump herself last night, she states she doesn't think she will require much follow up. She has a few steps to get into her home but is on one level. CM delivered IM, CM placed signed IM in back of chart. CM available to follow if discharge needs arise. Date Signed: 10/03/2018 10:03 AM Electronically Signed By:Tea Nino [place] Length of stay for Answers: 2 days current admission Acuity / Level of Answers: Yes Care: Did the patient have an inpatient admission? Comorbidities - select Answers: Diabetes (uncontrolled or all that apply controlled) Opioid dependence / Chronic pain Other Notes: HLD; HTN # of Emergency department Answers: 0 visits in the last 6 months Social determinants Answers: Mental health diagnosis (anxiety, depression, pers onality disorders, etc.) Score: 14 Date Signed: 10/03/2018 10:05 AM Electronically Signed By:Tea Nino Intervention Information Intervention Type:*COOPER-Signed Date of Service:10/01/2018 10:13 AM Patient Type:Observation Staff Member:Marleny Gary Hours: Discipline: Severity: Comment: Intervention Type:*IM-Signed Date of Service:10/03/2018 09:57 AM Patient Type:Inpatient Staff Member:Tea Nino Hours: Discipline: Severity: Comment:CM explained & delivered IM, patient s igned for receipt, CM placed in back of chart.
[2018-10-03] MEDS: LOSARTAN POTASSIUM 50 MG TAB PO SCH (10:11)
[2018-10-03] MEDS: SERTRALINE HCL 100 MG TAB PO SCH (10:11)
[2018-10-03] MEDS: FUROSEMIDE 40 MG TAB PO SCH (10:11)
[2018-10-03] MEDS: CARVEDILOL 25 MG TAB PO SCH (10:11)
--- NOTE | 2018-10-03 10:55 | GDS ---
[f rep st] DISCHARGE SUMMARY DISCHARGE DIAGNOSIS: Right lower extremity chronic wound secondary to squamous cell carcinoma excisi on and radiation. OTHER DIAGNOSES: Anxiety, depression, type 2 diabetes, hyperlipidemia, hyperparathyroidism, hyperten tomas, psoriasis, chronic renal insufficiency. PROCEDURES: Debridement of right lower extremity chronic wound with placement of AmnioFill with Dr. Diane Valencia. CONSULTATIONS: Dr. Sharan Arreguin, Anesthesia. HOSPITAL COURSE: The patient is a 73-year-old female who had a squamous cell carcinoma on her leg, a nd is now status post radiation treatment with a chronic wound at the site requiring debridement by Nolvia Valencia. The procedure was uncomplicated and she tolerated it well. She was kept as an inpatient f or pain control. Anesthesia was consulted, and placed an On-Q pain pump for continuous peripheral nerve block. She de veloped some numbness of her foot. She was kept in a walking shoe for protection. Her sensation imp roved, and her pain was well controlled aside from some occasional burning and shooting nerve pains. The patient was set up for discharge, but then developed hypertension with a systolic blood pressure of 185, with general malaise. Ultimately, this improved with better pain control with [place]. She wa s kept overnight for observation. She developed increased numbness of her foot, and so removed her o wn On-Q pain pump. Her pain was then controlled with [place] and ibuprofen, and she was eager for disc harge. DISCHARGE INSTRUCTIONS: Patient was discharged to home in stable condition on postoperative day 3. Her outer dressing was changed prior to discharge. Her AmnioFill was left in place. She was to foll ow up with Dr. Valencia and Argenis on Thursday as planned. /[id number]/MODL
--- NOTE | 2018-10-06 12:00 | GOP ---
[f rep st] OPERATIVE REPORT DATE OF OPERATION: 09/30/2018 SURGEON: Diane Valencia MD ANESTHESIA: General. ANESTHESIOLOGIST: Dr. Lucia Alcaraz. PREOPERATIVE DIAGNOSIS: Chronic wound, right lower extremity, due to squamous cell cancer that had b een radiated. POSTOPERATIVE DIAGNOSIS: Chronic wound, right lower extremity, due to squamous cell cancer that had been radiated. PROCEDURE PERFORMED: Debridement, skin and soft tissue, right lower extremity, 4.5 x 6 cm, with appl ication of tissue-derived skin substitute. FINDINGS: Wound measures 4.5 x 6 x 0.1 cm. AmnioFill [id number], expiration 12/20/2022. SPECIMENS: None. ESTIMATED BLOOD LOSS: Minimal. INDICATIONS: The patient is a 73-year-old woman with a chronic wound to her right lower extremity du e to radiation for squamous cell carcinoma. I took her for previous debridement and wound VAC placem ent. However, she was intermittently turning the wound VAC off. The wound was sloughy and has been extremely painful. She has been evaluated for hyperbaric. She will need tubes put in her ear in ord er to tolerate hyperbaric. The first step is getting the wound clean again. The depth of the wound has improved dramatically. DESCRIPTION OF PROCEDURE: The patient was brought into the operating room, placed supine on the tabl e, and anesthesia was administered. She had preoperative block placed. I used the Versajet to debri de the wound. It measures 4.5 x 6 x 0.1. Hemostasis was achieved. There was 100% healthy granulati on tissue. I placed AmnioFill, followed by Adaptic Touch, Hydrofera Blue, and a wrap. She tolerated the procedure well. She was awakened in the operating room, extubated, transferred to PACU in sta e condition. /[id number]/MODL
== END 2018-10-03 11:44 | disposition home or self-care (01) | DRG 607 ==
LOC: FSGY 09:41 → F3E 12:59 → OBSVTOIN 10-01 08:57
PROVIDERS: ADMIT Surgery; ATTEND Surgery
PROC: 0HDLXZZ Extraction of Left Lower Leg Skin, External Approach (ICD-10-PCS; principal; 2018-09-30 11:15)
DX: L59.8 Other specified disorders of the skin and subcutaneous tissue related to radiation (principal); Y84.2 Radiological procedure and radiotherapy as the cause of abnormal reaction of the patient, or of later complication, without mention of misadventure at the time of the procedure; T24.002D Burn of unspecified degree of unspecified site of left lower limb, except ankle and foot, subsequent encounter; Z85.828 Personal history of other malignant neoplasm of skin; E11.9 Type 2 diabetes mellitus without complications; E78.5 Hyperlipidemia, unspecified; I12.9 Hypertensive chronic kidney disease with stage 1 through stage 4 chronic kidney disease, or unspecified chronic kidney disease; N18.9 Chronic kidney disease, unspecified; E21.3 Hyperparathyroidism, unspecified; Z96.659 Presence of unspecified artificial knee joint
CPT/HCPCS: 97161-GP; 97165-GO; 97530-GP; 97535-GO; C9399; J1100; J2001; J2704; J2795; J3010